=== PATIENT | female | born 2000 | race African-American/Black ===

== ENCOUNTER 2018-01-13 23:12 | Emergency (ER) | payer OTHER | END 2018-01-14 00:32 | disposition home or self-care (01) | LOC: ERS 23:12 | DX: O99.89 Other specified diseases and conditions complicating pregnancy, childbirth and the puerperium (principal); R06.4 Hyperventilation; Z3A.01 Less than 8 weeks gestation of pregnancy | CPT/HCPCS: 99283 ==

== ENCOUNTER 2018-06-10 08:57 | Day surgery (SDC) | payer OTHER ==
[2018-06-10 09:41] VITALS: BP 108/62; TEMP 98.9
[2018-06-10 09:42] VITALS: BMI 23.8
[2018-06-10] MEDS ORDERED: Ondansetron HCl/PF 4 MG in Sodium Chloride 0.9% 50 ML IVPB PRN (10:29)
[2018-06-10] MEDS ORDERED: Lactated Ringer's 1,000 ML IV SCH (10:30)
--- NOTE | 2018-06-10 12:48 | PDOC.LDHP ---
Labor and Delivery H&P Chief complaint: other (N/V) HPI: 18 y/o at 29w5d, patient of Dr. Rivera, presents with 2 days of N/V/ diarrhea and has been unable to keep anything down today. Denies VB, LOF, ctx, or decreased FM. ROS neg for HEENT, CV, pulm, GI, , neuro, psych, skin, musculoskeletal, or constitutional symptoms other than mentioned above. OB History Details: 1 prior LTCS, baby had trisomy 13 and shortly after . Past Medical History: None Current medications: none Previous surgical history: low tranverse CS Allergies/Adverse Reactions: Allergies Allergy/AdvReac Type Severity Reaction Status Date / Time No Known Allergies Allergy Verified 06/10/18 09:51 Social history: none - Physical Exam Vital signs reviewed and normal: yes General: NAD, resting Lungs: nonlabored breathing Abdomen: gravid Extremeties: no edema FHT: category 1 (140s, mod variability, + 10x10 accels, no decels) [place] contractions every: irritability at first, resolved - Assessment 18 y/o at 29w5d with gastroenteritis. Sx much improved after IV fluids and zofran. status reassuring. - Plan -: D/c home with precautions. Given Rx for zofran.
== END 2018-06-10 13:15 | disposition home health service (06) ==
LOC: BBPSJX 08:57 → L&D/OP 13:15
PROVIDERS: ATTEND Family Medicine
DX: O99.613 Diseases of the digestive system complicating pregnancy, third trimester (principal); K52.9 Noninfective gastroenteritis and colitis, unspecified; O21.2 Late vomiting of pregnancy; Z3A.29 29 weeks gestation of pregnancy
CPT/HCPCS: 96361; 96365; 99282; J2405; J7050

== ENCOUNTER 2018-07-05 17:24 | Day surgery (SDC) | payer OTHER ==
[2018-07-05 17:53] VITALS: BMI 24.3
[2018-07-05 17:54] VITALS: BP 106/64; TEMP 99.1
--- NOTE | 2018-07-05 18:22 | PDOC.LDHP ---
Labor and Delivery H&P Chief complaint: abdominal pain HPI: 18 yo at 33.2w by reported 1T isela presents with cc of lower abdominal pain that started this afternoon while she was walking. She states the pain was 10/10 just above her pubic bone and got worse when she sat down. It lasted 40 minutes but completely resolved by the time she got here. She denies dysuria/ hematuria/vaginal discharge. She is feeling baby move regularly. Denies vaginal bleeding or LOF. Denies contractions. ROS: 10 point ROS negative apart from what is documented above PMHx: None PSHx: Primary C/S for NRFHT FHx: DM/HTN in maternal GM ALL: NKDA Soc Hx: Denies t/a/d Medications: Not taking any medications Current gestational age (weeks): 33 (33.2) Due date: 08/21/17 Dating criteria: first trimester ultrasound Grav: 2 Para: 1 Current complications: none Abnormal US findings: No Current medications: none Previous surgical history: low tranverse CS Allergies/Adverse Reactions: Allergies Allergy/AdvReac Type Severity Reaction Status Date / Time No Known Allergies Allergy Verified 07/05/18 17:50 Social history: none - Physical Exam Vital signs reviewed and normal: yes General: resting Heart: RRR Lungs: CTAB Abdomen: NTTP Extremeties: no edema FHT: category 1 [place] contractions every: None - OB Labs Blood type: unknown RH: unknown Antibody Screen: unknown HIV: unknown RPR: unknown HEPSAg: unknown 1 hour GCT: unknown GBS: unknown - Assessment A/P: 18 yo at 33.2w with lower abdominal pain that has resolved 1. Abdominal pain, resolved - Denies any trauma - Likely contraction vs. round ligament pain - Denies any ongoing pain, declined IV fluids - Encourage PO hydration, Tylenol PRN pain, recommend restarting PNV 2. IUP - No signs of labor at this time - Return precautions discussed 3. Prior C/S - Plan for repeat at 39w scheduled 4. H/o with Trisomy 13 and demise - NIPT and ultrasounds this all WNL per patient Reactive NST, recommend f/u with Dr. Rivera this week.
== END 2018-07-05 18:29 | disposition home or self-care (01) ==
LOC: L&D/OP 17:24
PROVIDERS: ATTEND Family Medicine
DX: O99.89 Other specified diseases and conditions complicating pregnancy, childbirth and the puerperium (principal); R10.30 Lower abdominal pain, unspecified; Z3A.33 33 weeks gestation of pregnancy
CPT/HCPCS: 99283

== ENCOUNTER 2018-07-11 18:11 | Day surgery (SDC) | payer OTHER ==
[2018-07-11 18:48] VITALS: BP 109/69; TEMP 98.2; BMI 25.1
[2018-07-11] MEDS ORDERED: Lactated Ringer's 1,000 ML IV SCH (19:00)
--- NOTE | 2018-07-11 19:02 | PDOC.LDHP ---
Labor and Delivery H&P Chief complaint: decreased movement HPI: Here for decreased FM Patient of Dr Rivera Location: Triage Time: 1900 HPI: 18 yo prior CS x 1 for FTP (trisomy 13 child- demise) here at 34 weeks 1 day with decreased FM since this AM (1100). No LOF, no VB, no recent trauma. No fevers. Review of Systems: complete ROS done and as per HPI Current gestational age (weeks): 34 (1 day) Dating criteria: last menstrual period Grav: 2 Para: 1 OB History Details: HX prior child with trisomy 13; CS Current complications: none Abnormal US findings: No Current medications: pre- vitamins Previous surgical history: low tranverse CS Allergies/Adverse Reactions: Allergies Allergy/AdvReac Type Severity Reaction Status Date / Time No Known Allergies Allergy Verified 07/11/18 18:48 - Physical Exam Vital signs reviewed and normal: yes (109/69; 98.2; 95; 18) General: NAD Heart: RRR Lungs: CTAB Abdomen: gravid Extremeties: no edema FHT: category 1 [place] contractions every: none - Assessment Decreased FM at 34 weeks, CS x 1 - Plan Plan: observation in L&D (NST reactive; also will add BPP; 1 liter hydration for conservative care)
--- NOTE | 2018-07-11 19:48 | PDOC.EVN ---
Event Note - Event Note Event Note: BPP 02/05...04/09 with NST Ok for outpatient care
--- NOTE | 2018-07-11 21:13 | ULT ---
EXAM: ULTRASOUND BIOPHYSICAL PROFILE: 07/11/18 HISTORY: 34 weeks with decreased movement. Single viable intrauterine fetus. heart rate 137 beats per minute. Cephalic presentation. Poste rior placenta. Amniotic fluid index 18.0 cm. tone, breathing, and movements are evaluated as well as amniotic fluid. bioph ysical profile score is normal, 8/8. IMPRESSION: Normal biophysical profile score, 8/8. POS: [facility]
== END 2018-07-11 19:55 | disposition home health service (06) ==
LOC: L&D/OP 18:11
PROVIDERS: ATTEND Family Medicine
DX: O36.8130 Decreased fetal movements, third trimester, not applicable or unspecified (principal); Z3A.34 34 weeks gestation of pregnancy; Z79.899 Other long term (current) drug therapy
CPT/HCPCS: 59025; 76819; 96360; 99282

== ENCOUNTER 2018-07-29 14:16 | Day surgery (SDC) | payer OTHER ==
[2018-07-29 14:30] VITALS: BMI 25.3
[2018-07-29 15:40] VITALS: BP 124/71; TEMP 98.8
--- NOTE | 2018-07-29 18:49 | ULT ---
BIOPHYSICAL PROFILE: 07/29/18 HISTORY: Prior loss. FINDINGS: Single viable intrauterine fetus in vertex presentation. heart rate 137 beats per minute. Amnio tic fluid is within normal limits with an ALLISON of 18.2 cm. breathing was demonstrated during thi s study. tone and movements were normal and amniotic fluid is normal. IMPRESSION: biophysical profile score 6/8, breathing was not demonstrated. This finding was relayed to the patient's nurse at the time of the performance of the study by Nohemy Samaniego. Code T POS: [facility]
== END 2018-07-29 16:05 | disposition home or self-care (01) ==
LOC: L&D/OP 14:16
PROVIDERS: ATTEND Family Medicine
DX: O36.8190 Decreased fetal movements, unspecified trimester, not applicable or unspecified (principal); Z3A.36 36 weeks gestation of pregnancy
CPT/HCPCS: 59025; 76819; 99282

== ENCOUNTER 2018-08-13 07:48 | Inpatient (IN) | payer OTHER ==
[2018-08-13] MEDS ORDERED: Ondansetron PF 4 MG/2 ML Vial IVP PRN ×3 (08:25→13:23)
[2018-08-13] MEDS ORDERED: Promethazine HCl 25 MG/ML VIAL IM PRN ×2 (08:25→09:01)
[2018-08-13] MEDS ORDERED: CEFAZOLIN/Water 2 GM/20 ML SYRINGE SLOW IVP SCH (08:30)
[2018-08-13] MEDS ORDERED: Bicitra 30 ML UDCUP PO SCH (08:30)
[2018-08-13] MEDS ORDERED: Lactated Ringer's 1,000 ML IV SCH ×3 (08:30→13:23)
[2018-08-13 08:33] VITALS: BMI 25.3
[2018-08-13] MEDS ORDERED: CEFAZOLIN 2 GM/50 ML BAG ONE (08:44)
[2018-08-13] MEDS ORDERED: Dexamethasone 4 mg/ml Vial ONE (08:51)
[2018-08-13] MEDS ORDERED: Ondansetron PF 4 MG/2 ML Vial ONE ×2 (08:51→13:44)
[2018-08-13] MEDS ORDERED: Oxytocin 10 UNITS/ML VIAL ONE (08:51)
[2018-08-13] MEDS ORDERED: MORPHINE 5 MG/10 ML PF VIAL ONE (08:51)
[2018-08-13] MEDS ORDERED: Meperidine HCl/PF 25 MG/ML VIAL SLOW IVP PRN (09:01)
[2018-08-13] MEDS ORDERED: Naloxone HCl 0.4 mg/ml Vial IVP PRN ×2 (09:01)
[2018-08-13] MEDS ORDERED: Promethazine HCl 25 MG SUPP PR PRN (09:01)
[2018-08-13] MEDS ORDERED: Ondansetron HCl/PF 4 MG/2 ML Vial IVP PRN (09:01)
[2018-08-13] MEDS ORDERED: Eucerin (Mineral Oil/Petrolatum,White) 30 gm Jar TOP PRN (09:01)
[2018-08-13] MEDS ORDERED: L&D-Morphine 4 MG/ML VIAL SLOW IVP PRN (09:01)
[2018-08-13] MEDS ORDERED: diphenhydrAMINE 50 MG/ML VIAL IVP PRN (09:01)
[2018-08-13] MEDS ORDERED: Ketorolac Tromethamine 30 MG/ML VIAL IVP PRN (09:01)
[2018-08-13] MEDS ORDERED: HYDROmorphone 2 MG/ML VIAL SLOW IVP PRN (09:01)
[2018-08-13] MEDS ORDERED: Naloxone HCl 0.4 mg/ml Vial IV PRN (09:01)
[2018-08-13] MEDS ORDERED: Communication Order-Pharmacy FS SCH (09:15)
[2018-08-13] MEDS ORDERED: Ketorolac Tromethamine 30 MG/ML VIAL IVP SCH (09:15)
[2018-08-13 09:20] LABS: Hemoglobin 11.5 g/dL (12.0-16.0); Mean Corpuscular HGB CONC 32.1 g/dL (32.0-36.0); Mean Corpuscular Hemoglobin 30.6 pg (25.0-35.0); Mean Corpuscular Volume 95.4 fL (78.0-98.0); Mean Platelet Volume 7.4 fL (7.4-10.4); Platelet Count 223 thou/uL (130-400); RBC Distribution Width 12.4 % (11.5-14.5); Red Blood Cell (RBC) Count 3.75 mill/uL (4.00-5.20); White Blood Cell (WBC) Count 5.7 thou/uL (4.8-10.8)
[2018-08-13] MEDS ORDERED: CEFAZOLIN 2 GM/50 ML-DEXTROSE 2 GM in Premix Bag 1 BAG IVPB SCH (09:45)
[2018-08-13] MEDS ORDERED: ePHEDrine/0.9% NaCl/PF SYRINGE 50 mg/10 ml ONE (10:00)
[2018-08-13 10:04] LABS: HBSAg Index 0.18 S/CO (0-0.99); Hep B Surf Ag Non-Reactive S/CO (NonReactive); Syphilis Antibody Nonreactive (Nonreactive); Syphilis Antibody Index 0.06 S/CO (<1.00 Non-Reactive)
[2018-08-13] MEDS ORDERED: diphenhydrAMINE 50 MG/ML VIAL ONE (13:10)
[2018-08-13] MEDS ORDERED: Meperidine HCl/PF 25 MG/ML VIAL IM PRN (13:23)
[2018-08-13] MEDS ORDERED: NS / Oxytocin 40 units/1000ml 1,000 ML IV SCH (13:23)
[2018-08-13] MEDS ORDERED: Bisacodyl 10 MG SUPP PR PRN (13:23)
[2018-08-13] MEDS ORDERED: Simethicone Chewable 80 MG TAB PO PRN (13:23)
[2018-08-13] MEDS ORDERED: ePHEDrine 50 MG/ML VIAL ONE (13:44)
[2018-08-13] MEDS: Ibuprofen 800 MG TAB PO SCH ×2 (16:14→21:20)
[2018-08-13] MEDS: diphenhydrAMINE 25 MG CAP PO PRN ×2 (17:51→21:20)
[2018-08-13] MEDS: Docusate Calcium (SURFAK) 240 MG CAP PO SCH (21:20)
[2018-08-13] MEDS: Ferrous Sulfate 325 MG TAB PO SCH (21:28)
[2018-08-14] MEDS: Ibuprofen 800 MG TAB PO SCH ×3 (05:31→21:03)
[2018-08-14] MEDS: diphenhydrAMINE 25 MG CAP PO PRN ×4 (05:31→19:21)
[2018-08-14 09:09] LABS: Hemoglobin 10.5 g/dL (12.0-16.0); Mean Corpuscular Hemoglobin 30.5 pg (25.0-35.0); Mean Corpuscular Volume 95.2 fL (78.0-98.0); Mean Platelet Volume 7.2 fL (7.4-10.4); Platelet Count 249 thou/uL (130-400); RBC Distribution Width 12.1 % (11.5-14.5); Red Blood Cell (RBC) Count 3.44 mill/uL (4.00-5.20); White Blood Cell (WBC) Count 7.7 thou/uL (4.8-10.8)
[2018-08-14] MEDS: Ferrous Sulfate 325 MG TAB PO SCH ×2 (09:30→19:29)
[2018-08-14] MEDS: Docusate Calcium (SURFAK) 240 MG CAP PO SCH ×2 (09:30→19:29)
[2018-08-14] MEDS: Prenatal Vitamin 1 TAB PO SCH (09:30)
[2018-08-14] MEDS: HYDROcodone/Acetaminophen 5/325 mg Tablet PO PRN ×3 (12:29→19:29)
[2018-08-15] MEDS: Ibuprofen 800 MG TAB PO SCH ×2 (05:00→13:51)
[2018-08-15] MEDS: HYDROcodone/Acetaminophen 5/325 mg Tablet PO PRN ×2 (05:00→10:09)
[2018-08-15] MEDS: Ferrous Sulfate 325 MG TAB PO SCH (07:32)
[2018-08-15] MEDS: Prenatal Vitamin 1 TAB PO SCH (07:32)
[2018-08-15] MEDS: Docusate Calcium (SURFAK) 240 MG CAP PO SCH (07:32)
[2018-08-15 11:30] VITALS: BP 109/62; TEMP 98.3
--- NOTE | 2018-08-18 14:31 | OP ---
DATE OF PROCEDURE: 08/13/2018 RESIDENT SURGEON: Moraima Triana DO. PROCEDURE PERFORMED: Repeat low transverse section. PREOPERATIVE DIAGNOSES: 1. Term intrauterine . 2. Onset of labor. 3. Prior section x1. 4. Prior trisomy 13 with last . POSTOPERATIVE DIAGNOSES: 1. Term intrauterine , delivered. 2. Status post repeat low transverse delivery. 3. Onset of labor. 4. Prior section x1. 5. Prior trisomy 13 with last . ANESTHESIA: Spinal. INDICATIONS: This is a 18-year-old female, G2, P1,0,0,0 at 38 and 6 weeks gestation, who presented with onset of labor and has history of a x1. DESCRIPTION OF PROCEDURE: After risks, benefits, and alternatives were explained to the patient, she gave informed consent. Preoperative antibiotics included cefazolin 2 g IV as well as azithromycin 500 mg IV. The patient was taken to the operating room, and spinal anesthesia was initiated. She was placed in the supine position with left tilt and prepped and draped in usual sterile fashion. A Pfannenstiel incision was made with a scalpel and carried down to the level of the fascia, which was sharply nicked. The fascial cut was extended bilaterally with Beal scissors. The inferior and superior edges of the cut fascial edges were elevated with Luis Antonio clamps, and the underlying rectus muscles were sharply and bluntly dissected free. The recti were divided digitally and retracted manually. The peritoneum was entered bluntly and retracted manually. Bladder blade was placed. A low transverse score was made with a scalpel, and the uterus was entered in the midline with the scalpel. Clear fluid was seen. Hysterotomy was extended manually. The was noted to be vertex and was easily delivered by fundal pressure. Mouth and nares were bulb suctioned. Cord was clamped and cut, and grossly normal female was handed to awaiting nurse. Cord blood was also obtained. The placenta was manually extracted and found to be intact with three-vessel cord and discarded. The uterus was externalized, and the endometrium was curetted with a dry lap. The bladder blade was replaced, and the uterus was closed with a running locking 0 Vicryl suture x2. Following this, hemostasis was noted. The abdomen was irrigated with saline and suctioned free of clots. The uterus was internalized, and the hysterotomy was again noted to be hemostatic. Carsonfilm was placed on uterus. The peritoneum was closed using 3-0 Vicryl. The uterus was internalized and the hysterotomy was again noted to be hemostatic. The fascia was closed with running nonlocking 0 PDS suture. The subcutaneous tissue was irrigated, and bleeders were cauterized. The subcutaneous tissue was brought together using 3-0 Vicryl. The skin was approximated with don and pressure dressing was placed. All counts were correct. The patient tolerated the procedure well and was taken to the recovery room in stable condition. ESTIMATED BLOOD LOSS: 600 mL. COMPLICATIONS: None. SPECIMENS: Cord blood sent to lab for blood type. FINDINGS: Grossly normal female with Apgars of 8 and 9 at one and five minutes respectively. Grossly normal placenta with three vessel cord discarded. DRAINS: Gonzales to gravity, draining clear urine. Job ID: [id number] MTDD
== END 2018-08-15 17:10 | disposition home or self-care (01) | DRG 788 ==
LOC: L&D/OP 07:48 → L&D 09:09 → 3SE 13:56
PROVIDERS: ADMIT Family Medicine; ATTEND Family Medicine
PROC: 10D00Z1 Extraction of Products of Conception, Low, Open Approach (ICD-10-PCS; principal; 2018-08-13)
DX: O34.211 Maternal care for low transverse scar from previous cesarean delivery (principal); Z3A.38 38 weeks gestation of pregnancy; Z37.0 Single live birth
CPT/HCPCS: 36415; 51702; 85027; 86780; 86850; 86900; 86901; 87340; 99285; J1100; J1200; J2270; J2405; J2590; J3490; Q0163

== ENCOUNTER 2019-05-05 13:31 | Outpatient (CLI) | payer MEDICAID, OTHER ==
--- NOTE | 2019-05-05 14:29 | ULT ---
EXAM: OB ultrasound COMPARISON: None HISTORY: female. Evaluate size, dates, and anatomy. TECHNIQUE: Multiplanar grayscale and color Doppler transabdominal sonographic images are obtained. FINDINGS: There is a single intrauterine gestation in cephalic presentation. Cardiac Doppler demonstr ates heart tones with a heart rate of 153 beats per minute. The placenta is located anterior without evidence of placenta previa. There is a normal amount of amniotic fluid with an amni otic fluid index of 9.7 centimeters. The cervical length based on transabdominal imaging measures 3.3 centimeters. biometry measurements: BPD 3.53 cm -- 17 weeks HC 13.32 cm -- 17 weeks AC 11.72 cm -- 17 weeks 4 days FL 2.19 cm -- 16 weeks 4 days The estimated gestational age by ultrasound is 17 weeks 1 day with an MARTITA on10/12/2019. Gestational ag e by the last menstrual period is 17 weeks 2 days. The estimated weight by ultrasound is 177 g (6 ounces). This represents 27 percentile for weight. The cord insertion is not well delineated primarily related to positioning. A 4 chambered heart is visualized. The cerebellum, visualized portions of the spine, kidneys, and urinary bladder demonstrate a normal sonographic appearance. A three-vessel cord is not visualized, but there is flow on either side of the urinary bladder sugges ting a three-vessel cord.. No anomalies are seen. IMPRESSION: 1. Single intrauterine gestation in cephalic presentation with heart tones documented. Estimat ed gestational age by ultrasound is 17 weeks 1 day. 2. Estimated weight is 177 g (6 ounces). 3. Amniotic fluid index is 9.69 centimeters.
== END 2019-05-05 13:32 | disposition home or self-care (01) ==
LOC: BICULT 13:31
PROVIDERS: ATTEND Family Medicine
DX: O09.92 Supervision of high risk pregnancy, unspecified, second trimester (principal); Z3A.17 17 weeks gestation of pregnancy
CPT/HCPCS: 76805

== ENCOUNTER 2019-07-29 16:18 | Day surgery (SDC) | payer OTHER ==
[2019-07-29 16:43] LABS: Pregnancy Test - Urine (BHCG) POSITIVE (Negative); Pregu Control Background? CLEAR/WHITE (CLR/WHITE); Pregu Control Bar Appear? YES (CONTROL BAR); Specific Gravity 1.033 (1.002-1.036)
[2019-07-29 16:49] LABS: Bacteria/HPF 3+ HPF (None Seen); Bilirubin Negative (Negative); Blood, Urine Negative (Negative); Clarity Turbid (Clear); Glucose, Urine (Dipstick) Normal (Negative); Leukocyte Negative Leu/uL (Negative); Mucous/LPF Rare LPF (<2+); Nitrite Negative (Negative); Protein, Urine (Dipstick) 70 mg/dL (Neg-Trace); RBC/HPF 0-3 HPF (0-3); Urobilinogen Normal mg/dL (Less than 2)
[2019-07-29 17:20] VITALS: BP 114/58; TEMP 98; BMI 23.2
[2019-07-29] MEDS ORDERED: hydrALAZINE 20 MG/ML VIAL SLOW IVP PRN (17:40)
[2019-07-29 18:19] LABS: #Basophils 0.1 thou/uL (0.0-0.2); #Eosinphils 0.1 thou/uL (0.0-0.7); #Lymphocytes 1.8 thou/uL (1.20-3.40); #Monocytes 0.5 thou/uL (0.11-0.59); #Neutrophils 6.7 thou/uL (1.40-6.50); %Basophils 1.1 % (0.0-1.0); %Eosinophils 0.8 % (0.0-10.0); %Lymphocytes 19.7 % (21.0-51.0); %Monocytes 5.3 % (0.0-10.0); %Neutrophils 73.1 % (42.0-75.0); Hemoglobin 12.1 g/dL (12.0-16.0); Mean Corpuscular HGB CONC 33.3 g/dL (32.0-36.0); Mean Corpuscular Hemoglobin 32.3 pg (27.0-31.0); Mean Corpuscular Volume 97.2 fL (78.0-98.0); Mean Platelet Volume 7.7 fL (7.4-10.4); Platelet Count 208 thou/uL (130-400); RBC Distribution Width 12.1 % (11.5-14.5); Red Blood Cell (RBC) Count 3.73 mill/uL (4.20-5.40); White Blood Cell (WBC) Count 9.1 thou/uL (4.8-10.8)
[2019-07-29] MEDS ORDERED: Ondansetron PF 4 MG/2 ML Vial IVP PRN (18:33)
[2019-07-29 18:36] LABS: ALT (SGPT) Less than 7 U/L (8-55); AST (SGOT) 11 U/L (5-34); Albumin 3.2 g/dL (3.5-5.0); Alkaline Phosphatase 49 U/L (40-110); Anion Gap 11 mmol/L (10-20); BUN (Urea Nitrogen) Less than 4 mg/dL (7.0-18.7); Bilirubin, Total 0.4 mg/dL (0.2-1.2); Calc. Creatinine Clearance 115 mL/min (70-130); Calcium 7.9 mg/dL (7.8-10.44); Carbon Dioxide 23 mmol/L (22-29); Chloride 105 mmol/L (98-107); Estimated GFR-MDRD Greater than 90; Globulin 3.2 g/dL (2.4-3.5); Glucose 77 mg/dL (70-105); Potassium 3.5 mmol/L (3.5-5.1); Protein, Total 6.4 g/dL (6.0-8.3); Sodium 135 mmol/L (136-145)
[2019-07-29] MEDS ORDERED: Lactated Ringer's 1,000 ML IV SCH ×2 (18:45)
[2019-07-29 19:45] LABS: Bacteria/HPF None Seen HPF (None Seen); Bilirubin Negative (Negative); Blood, Urine Negative (Negative); Clarity Clear (Clear); Glucose, Urine (Dipstick) Normal (Negative); Leukocyte Negative Leu/uL (Negative); Nitrite Negative (Negative); Protein, Urine (Dipstick) Negative (Neg-Trace); RBC/HPF 0-3 HPF (0-3); Squamous Epithelial 0-3 HPF (0-3); Urobilinogen Normal mg/dL (Less than 2); WBC/HPF 0-3 HPF (0-3)
--- NOTE | 2019-07-29 21:23 | SS ---
DATE OF ADMISSION: 07/29/2019 DATE OF DISCHARGE: 07/29/2019 REGULAR PHYSICIAN: Ej Rivera MD EVALUATING PHYSICIAN: Anam Crum MD CHIEF COMPLAINT: Nausea, vomiting, diarrhea at home. HISTORY OF PRESENT ILLNESS: Ms. Bajwa is a 19-year-old black G3, P2 with an estimated date of confinement of 10/11/2019, who presents complaining of nausea, vomiting, and diarrhea since 3:00 a.m. She denies ill contacts at home. She denies ruptured membranes, vaginal bleeding, or contractions. Her care has been with Dr. Rivera without complications. PAST OBSTETRICAL HISTORY: Includes two sections. PAST MEDICAL HISTORY: None. PAST SURGICAL HISTORY: C-sections x2 as above. CURRENT MEDICATIONS: vitamins. ALLERGIES: NO KNOWN ALLERGIES. SOCIAL HISTORY: Denies tobacco, alcohol, or drug use. FAMILY HISTORY: Unremarkable. REVIEW OF SYSTEMS: Denies fever, chills, ruptured membranes, vaginal bleeding, decreased movement. PHYSICAL EXAMINATION: VITAL SIGNS: Blood pressure is 114/58, pulse 68, and temperature 98.0 on evaluation. GENERAL: She is pleasant and in no acute distress. heart rate tracing is stable. There are no decelerations. No significant uterine activity seen. LABORATORY DATA: White count 9.1, hemoglobin and hematocrit 12.1 and 36.2. Platelet count 208,000. Chemistries; sodium 135, potassium 3.5, BUN less than 4, creatinine 0.68, glucose 77, total bilirubin 0.4, AST 11, ALT less than 7, alkaline phosphatase 49. Urinalysis is repeated and it shows ketones, but is negative for leukocyte esterase or nitrites. On microscopic, no bacteria are seen. The patient is hydrated with a liter of IV fluid. At the end of her time in Labor and Delivery, she was tolerating Gatorade and was eating part of a sandwich. ASSESSMENT: 1. 29 and 3 week intrauterine . 2. Suspect viral syndrome. PLAN: The patient will be dismissed to home. She was given a prescription for Phenergan 25 mg p.o. #30 one p.o. q.6 hours p.r.n. nausea. She can use [id number] diarrheal for any continued diarrhea that she experiences. She was given complete precautions and states that she has follow up with Dr. Rivera next week in the office. Job ID: [id number]
== END 2019-07-29 20:17 | disposition home or self-care (01) ==
LOC: ERS 16:18 → EDSTATUS 16:56 → L&D/OP 16:57
DX: O21.2 Late vomiting of pregnancy (principal); O99.89 Other specified diseases and conditions complicating pregnancy, childbirth and the puerperium; R19.7 Diarrhea, unspecified; Z3A.29 29 weeks gestation of pregnancy
CPT/HCPCS: 36415; 51701; 80053; 81003; 81015; 81025; 85025; 96360; 96375; 99283; J2405

== ENCOUNTER 2019-09-26 04:49 | Day surgery (SDC) | payer OTHER ==
[2019-09-26 05:20] VITALS: BP 118/68; TEMP 98; BMI 25.0
[2019-09-26 06:27] LABS: Bilirubin Negative (Negative); Blood, Urine Negative (Negative); Clarity Turbid (Clear); Glucose, Urine (Dipstick) Normal (Negative); Leukocyte Negative Leu/uL (Negative); Nitrite Negative (Negative); Protein, Urine (Dipstick) 10 mg/dL (Neg-Trace); RBC/HPF 0-3 HPF (0-3); Squamous Epithelial 0-3 HPF (0-3); Urobilinogen Normal mg/dL (Less than 2)
[2019-09-26 06:29] LABS: Bacteria/HPF 1+ HPF (None Seen)
[2019-09-26] MEDS ORDERED: hydrALAZINE 20 MG/ML VIAL SLOW IVP PRN (06:58)
--- NOTE | 2019-09-26 07:29 | PRG ---
DATE OF SERVICE: 09/26/2019 PRIMARY PAPER CUTTER OPERATOR: Ej Rivera MD CHIEF COMPLAINT: Back pain, pelvic pressure. HISTORY OF PRESENT ILLNESS: The patient is a 19-year-old G3, P1 female with an intrauterine at 37 weeks and 6 days, presenting to Labor and Delivery with right lower back pain, that she reports it is worse with trying to sit up and pelvic pressure and pain. She denies any vaginal bleeding or leakage of fluid. She reports these pains have been present for about a day or so. She denies fever, cough, chest pain, shortness of breath, nausea, vomiting, diarrhea, constipation , hip problems, knee problems, muscle weakness. She denies any new rashes. PAST MEDICAL HISTORY: Negative. PAST SURGICAL HISTORY: She has had 1 previous . ALLERGIES: NO KNOWN DRUG ALLERGIES. MEDICATIONS: vitamins. SOCIAL HISTORY: Denies drug, alcohol, or tobacco use. OBSTETRICAL LABS: Unavailable at time of dictation. REVIEW OF SYSTEMS: Per HPI. PHYSICAL EXAMINATION: VITAL SIGNS: Blood pressure of 118/68, pulse of 82, respiratory rate of 18 saturating 99% on room air, temperature of 98.0. GENERAL: She appears to be in no acute distress. She is alert, oriented, cooperative, and pleasant to interact with. HEAD: Normocephalic and atraumatic. LUNGS: Clear to auscultation bilaterally. HEART: Has a regular rate and rhythm. ABDOMEN: Gravid. She has some tenderness down in the lower pelvic area. She also has some point tenderness in her right paravertebral area in her lumbar region. No CVA tenderness. EXTREMITIES: Nontender and nonedematous. : Cervical exam per nursing staff, she is closed, thick, and high. heart tracing shows the fetus with a baseline in the 130s with moderate long-term variability. Positive accelerations. Contractions show some irritability. No regular contraction pattern. LABORATORY DATA: Urinalysis shows a turbid urine with 4 to 6 white blood cells and 1+ bacteria, 0 squamous cells, negative leukocyte esterase, negative nitrites. VPIII is still pending. ASSESSMENT AND PLAN: The patient is a 19-year-old female with an intrauterine at 37 weeks and 6 days with musculoskeletal pains of , also with evidence of urinary tract infection. We are waiting on a VPIII prior to discharging the patient home. The patient has no evidence of labor at this time. She has an appointment on with her primary OB, Dr. Rivera, which we have encouraged that she keep. Once the VPIII is resulted, we will finish disposition. Job ID: [id number] MTDD
== END 2019-09-26 07:50 | disposition home or self-care (01) ==
LOC: L&D/OP 04:49
PROVIDERS: ATTEND Family Medicine
DX: O26.893 Other specified pregnancy related conditions, third trimester (principal); M54.5 Low back pain; R10.2 Pelvic and perineal pain; Z3A.37 37 weeks gestation of pregnancy
CPT/HCPCS: 81001; 87480; 87510; 87660; 99284

== ENCOUNTER 2019-10-06 05:29 | Inpatient (IN) | payer MEDICAID, OTHER ==
[2019-10-06 05:55] VITALS: BMI 25.4
[2019-10-06] MEDS ORDERED: Ondansetron PF 4 MG/2 ML Vial IVP PRN ×4 (05:55→10:48)
[2019-10-06] MEDS ORDERED: Lactated Ringer's 1,000 ML IV SCH (05:55)
[2019-10-06] MEDS ORDERED: hydrALAZINE 20 MG/ML VIAL SLOW IVP PRN ×3 (05:55→10:47)
[2019-10-06] MEDS ORDERED: CEFAZOLIN 2 GM in Premix Bag 1 BAG IVPB SCH (05:55)
[2019-10-06] MEDS ORDERED: Promethazine HCl 25 MG/ML VIAL IM PRN ×4 (05:55→10:49)
[2019-10-06] MEDS ORDERED: Bicitra 30 ML UDCUP PO SCH (06:00)
[2019-10-06 06:10] LABS: Hemoglobin 11.9 g/dL (12.0-16.0); Mean Corpuscular HGB CONC 33.7 g/dL (32.0-36.0); Mean Corpuscular Hemoglobin 31.5 pg (27.0-31.0); Mean Corpuscular Volume 93.4 fL (78.0-98.0); Mean Platelet Volume 7.4 fL (7.4-10.4); Platelet Count 235 thou/uL (130-400); RBC Distribution Width 12.1 % (11.5-14.5); Red Blood Cell (RBC) Count 3.77 mill/uL (4.20-5.40); White Blood Cell (WBC) Count 8.5 thou/uL (4.8-10.8)
[2019-10-06] MEDS ORDERED: MORPHINE 5 MG/10 ML PF VIAL ONE (07:18)
[2019-10-06] MEDS ORDERED: PHENYLEPHRINE-NS 100 MCG/ML 10 ML SYRINGE ONE (07:19)
[2019-10-06] MEDS ORDERED: Oxytocin 10 UNITS/ML VIAL ONE (07:19)
[2019-10-06 07:26] LABS: HBSAg Index 0.23 S/CO (0-0.99); Hep B Surf Ag Non-Reactive S/CO (NonReactive); Syphilis Antibody Nonreactive (Nonreactive); Syphilis Antibody Index 0.03 S/CO (<1.00 Non-Reactive)
[2019-10-06] MEDS ORDERED: Ondansetron HCl/PF 4 MG/2 ML Vial IVP PRN (08:37)
[2019-10-06] MEDS ORDERED: Naloxone HCl 0.4 mg/ml Vial IV PRN (08:37)
[2019-10-06] MEDS ORDERED: Promethazine HCl 25 MG SUPP PR PRN (08:37)
[2019-10-06] MEDS ORDERED: Ketorolac Tromethamine 30 MG/ML VIAL IVP PRN (08:37)
[2019-10-06] MEDS ORDERED: Meperidine HCl/PF 25 MG/ML VIAL SLOW IVP PRN (08:37)
[2019-10-06] MEDS ORDERED: HYDROmorphone 2 MG/ML VIAL SLOW IVP PRN (08:37)
[2019-10-06] MEDS ORDERED: L&D-Morphine 4 MG/ML VIAL SLOW IVP PRN (08:37)
[2019-10-06] MEDS ORDERED: diphenhydrAMINE 50 MG/ML VIAL IVP PRN (08:37)
[2019-10-06] MEDS ORDERED: Naloxone HCl 0.4 mg/ml Vial IVP PRN ×2 (08:37)
[2019-10-06] MEDS ORDERED: Communication Order-Pharmacy FS SCH (08:45)
[2019-10-06] MEDS ORDERED: Ketorolac Tromethamine 30 MG/ML VIAL IVP SCH (08:45)
[2019-10-06] MEDS ORDERED: diphenhydrAMINE 50 MG/ML VIAL ONE (09:38)
[2019-10-06] MEDS ORDERED: Prenatal Vitamin 1 TAB PO SCH (10:24)
[2019-10-06] MEDS ORDERED: Docusate Calcium (SURFAK) 240 MG CAP PO SCH (10:24)
[2019-10-06] MEDS ORDERED: HYDROcodone/Acetaminophen 5/325 mg Tablet PO PRN ×3 (10:24→10:47)
[2019-10-06] MEDS ORDERED: NS / Oxytocin 40 units/1000ml 1,000 ML IV SCH ×2 (10:24→11:00)
[2019-10-06] MEDS ORDERED: Lanolin Ointment 7 GM TUBE TOP PRN ×2 (10:24→10:48)
[2019-10-06] MEDS ORDERED: Ferrous Sulfate 325 MG TAB PO SCH (10:24)
[2019-10-06] MEDS ORDERED: Simethicone Chewable 80 MG TAB PO PRN ×2 (10:24→10:49)
[2019-10-06] MEDS ORDERED: Bisacodyl 10 MG SUPP PR PRN ×2 (10:24→10:45)
[2019-10-06] MEDS ORDERED: Meperidine HCl/PF 25 MG/ML VIAL IM PRN ×2 (10:24→10:48)
[2019-10-06] MEDS ORDERED: diphenhydrAMINE 25 MG CAP PO PRN (10:24)
--- NOTE | 2019-10-06 12:12 | OP ---
DATE OF PROCEDURE: 10/06/2019 RESIDENT SURGEON: Dr. Moraima Triana. ATTENDING SURGEON: Ej Rivera MD PROCEDURE PERFORMED: Repeat low transverse . PREOPERATIVE DIAGNOSES: 1. Term intrauterine at 39 and 2 weeks. 2. Previous x2. 3. History of trisomy 13 with 1st . POSTOPERATIVE DIAGNOSES: 1. Term intrauterine , delivered. 2. Previous x2. 3. History of trisomy 13 with 1st . ANESTHESIA: Spinal. INDICATIONS: This is a 19-year-old, at 39 and 2 weeks, who presents for repeat scheduled . DESCRIPTION OF PROCEDURE: After risks, benefits, and alternatives explained to the patient, she gave informed consent. Preoperative antibiotics included cefazolin 2 g IV. The patient was taken to the operating room and spinal anesthesia was initiated. She was placed in supine position with a left tilt and prepped and draped in usual sterile fashion. A Pfannenstiel incision was made with a scalpel and carried down to the level of the fascia, which was sharply nicked. There were noted to be moderate adhesions during this process. The fascial cut was extended bilaterally with Beal scissors. Inferior and superior edges of the cut fascial edges were elevated with Luis Antonio clamps and the underlying rectus muscles were sharply dissected free using Beal scissors. A small opening was noted in the midline of the recti muscle that was entered bluntly. The peritoneum was entered bluntly and both the recti muscles and peritoneum were retracted manually. Bladder blade was placed. A low transverse score was made with the scalpel and the uterus was entered in the midline with a scalpel. A clear fluid was seen. Hysterotomy was extended manually. Infant was noted to be vertex and was easily delivered by fundal pressure. Mouth and nares were bulb suctioned. Cord was clamped and cut, and grossly normal female was handed to awaiting nurse. Cord blood was obtained. Placenta manually extracted, found to be intact with three-vessel cord and discarded. Uterus was externalized and endometrium was curetted with a dry lap. The bladder blade was replaced. The uterus was closed in a running locking #1 Monocryl suture with several [id number] stitches for hemostasis. The abdomen was irrigated with saline and suctioned free of clots, both anterior and posterior to the uterus. There were not noted to be an extensive amount of uterine adhesions. The uterus was internalized and hysterotomy was again noted to be hemostatic. The peritoneum was closed with 3-0 Vicryl in a running nonlocking fashion. The recti muscles were examined and bleeders were cauterized. The fascia was then closed with a running nonlocking 0 PDS suture. The subcutaneous tissue was irrigated and bleeders were cauterized. The subcutaneous tissue was brought together using three interrupted sutures with 3-0 Vicryl. The skin was then approximated with don and pressure dressing was placed. All counts were correct. The patient tolerated the procedure well, was taken to the recovery room in stable condition. ESTIMATED BLOOD LOSS: 492 mL COMPLICATIONS: None. SPECIMEN: 492 mL FINDINGS: Grossly normal female infant with Apgars pending at time of dictation. Of note, the patient was requiring CPAP to maintain saturation. was taken to the NICU for care. Grossly normal placenta with 3-vessel cord discarded. DRAINS: Gonzales to gravity, draining clear urine. Job ID: [id number] [facility]
[2019-10-06] MEDS: Ibuprofen 800 MG TAB PO SCH (13:34)
[2019-10-06] MEDS: Ketorolac Tromethamine 30 MG/ML VIAL IVP SCH ×2 (13:52→19:55)
[2019-10-06] MEDS: diphenhydrAMINE 25 MG CAP PO PRN ×3 (13:55→22:17)
[2019-10-06] MEDS ORDERED: Sodium Chloride 0.9% 1,000 ML IV SCH (16:15)
[2019-10-06] MEDS: Sodium Chloride 0.9% 1,000 ML IV SCH (16:21)
[2019-10-06] MEDS: Docusate Calcium (SURFAK) 240 MG CAP PO SCH (19:56)
[2019-10-07] MEDS: Ketorolac Tromethamine 30 MG/ML VIAL IVP SCH (02:46)
[2019-10-07] MEDS: Sodium Chloride 0.9% 1,000 ML IV SCH ×3 (03:11→22:47)
[2019-10-07] MEDS: Ibuprofen 800 MG TAB PO SCH ×4 (03:11→21:54)
[2019-10-07] MEDS: Ferrous Sulfate 325 MG TAB PO SCH ×3 (03:11→22:46)
[2019-10-07] MEDS: diphenhydrAMINE 25 MG CAP PO PRN ×4 (03:23→19:47)
[2019-10-07 05:59] LABS: Hemoglobin 10.9 g/dL (12.0-16.0); Mean Corpuscular HGB CONC 32.6 g/dL (32.0-36.0); Mean Corpuscular Hemoglobin 30.8 pg (27.0-31.0); Mean Corpuscular Volume 94.5 fL (78.0-98.0); Mean Platelet Volume 7.1 fL (7.4-10.4); Platelet Count 195 thou/uL (130-400); RBC Distribution Width 11.9 % (11.5-14.5); Red Blood Cell (RBC) Count 3.52 mill/uL (4.20-5.40); White Blood Cell (WBC) Count 6.3 thou/uL (4.8-10.8)
[2019-10-07] MEDS ORDERED: Adacel (T-DAP) 0.5 ML SYRINGE IM ONE (09:00)
[2019-10-07] MEDS ORDERED: Ibuprofen 800 MG TAB PO SCH (10:00)
[2019-10-07] MEDS: Docusate Calcium (SURFAK) 240 MG CAP PO SCH ×2 (10:22→21:54)
[2019-10-07] MEDS: Prenatal Vitamin 1 TAB PO SCH (10:22)
[2019-10-07] MEDS: HYDROcodone/Acetaminophen 5/325 mg Tablet PO PRN ×2 (15:00→19:48)
[2019-10-08] MEDS: Sodium Chloride 0.9% 1,000 ML IV SCH ×3 (01:56→15:20)
[2019-10-08] MEDS: Ibuprofen 800 MG TAB PO SCH ×2 (05:05→13:44)
[2019-10-08 08:20] VITALS: BP 109/70; TEMP 98.3
[2019-10-08] MEDS: Ferrous Sulfate 325 MG TAB PO SCH (08:53)
[2019-10-08] MEDS: Prenatal Vitamin 1 TAB PO SCH (08:55)
[2019-10-08] MEDS: Docusate Calcium (SURFAK) 240 MG CAP PO SCH (08:55)
[2019-10-08] MEDS: HYDROcodone/Acetaminophen 5/325 mg Tablet PO PRN (08:55)
== END 2019-10-08 18:50 | disposition home or self-care (01) | DRG 788 ==
LOC: L&D 05:29 → 3SW 11:08
PROVIDERS: ADMIT Family Medicine; ATTEND Family Medicine
PROC: 10D00Z1 Extraction of Products of Conception, Low, Open Approach (ICD-10-PCS; principal; 2019-10-06)
DX: O34.211 Maternal care for low transverse scar from previous cesarean delivery (principal); O99.02 Anemia complicating childbirth; D64.9 Anemia, unspecified; O76 Abnormality in fetal heart rate and rhythm complicating labor and delivery; N85.8 Other specified noninflammatory disorders of uterus; Z3A.39 39 weeks gestation of pregnancy; Z37.0 Single live birth
CPT/HCPCS: 36415; 51702; 85027; 86780; 86850; 86900; 86901; 87340; J0690; J1200; J1885; J2274; J2590; Q0163

== ENCOUNTER 2020-04-21 08:48 | Emergency (ER) | payer OTHER ==
--- NOTE | 2020-04-21 09:33 | RAD ---
CHEST 1 VIEW: HISTORY: Cough. FINDINGS: Normal cardiac silhouette. The pulmonary vessels and hilum are normal. Costophrenic angles are mihai r. No consolidation or mass. No pneumothorax or acute osseous abnormality. IMPRESSION: No acute cardiopulmonary process. POS: [facility]
[2020-04-21 17:10] LABS: SARS-CoV-2 MS2 Positive; SARS-CoV-2 N Gene Negative; SARS-CoV-2 S Gene Negative; SARS-CoV-2 by NAA Not Detected (NotDetected); SARS-CoV-2 orf1ab Negative
== END 2020-04-21 10:05 | disposition home or self-care (01) ==
LOC: ERS 08:48
DX: R06.02 Shortness of breath (principal); R09.81 Nasal congestion; Z20.828 Contact with and (suspected) exposure to other viral communicable diseases
CPT/HCPCS: 71045; 87635; U0003

== ENCOUNTER 2021-05-15 11:07 | Emergency (ER) | payer OTHER ==
[2021-05-15 11:47] LABS: Bacteria/HPF 1+ HPF (None Seen); Bilirubin Negative (Negative); Blood, Urine 2+ (Negative); Clarity Turbid (Clear); Glucose, Urine (Dipstick) Normal (Negative); Ketone, Urine Negative (Negative); Leukocyte 250 Leu/uL (Negative); Nitrite Negative (Negative); Protein, Urine (Dipstick) 10 mg/dL (Neg-Trace); Specific Gravity, Urine 1.029 (1.002-1.036); Urobilinogen Normal mg/dL (Less than 2); pH, Urine 5.5 (5.0-9.0)
[2021-05-15 11:48] LABS: Pregnancy Test - Urine (BHCG) Negative (Negative); Pregu Control Background? CLEAR/WHITE (CLR/WHITE); Pregu Control Bar Appear? YES (CONTROL BAR); Specific Gravity 1.029 (1.002-1.036)
== END 2021-05-15 12:06 | disposition home or self-care (01) ==
LOC: ERS 11:07
DX: M54.50 Low back pain, unspecified (principal)
CPT/HCPCS: 81003; 81015; 81025; 87086; 99283

== ENCOUNTER 2021-06-07 13:11 | Emergency (ER) | payer OTHER | END 2021-06-07 15:54 | disposition left against medical advice (07) | LOC: ERS 13:11 | DX: Z53.21 Procedure and treatment not carried out due to patient leaving prior to being seen by health care provider (principal) ==

== ENCOUNTER 2021-06-10 18:27 | Emergency (ER) | payer OTHER ==
[2021-06-10 19:57] LABS: #Eosinphils 0.1 thou/uL (0.0-0.7); #Lymphocytes 2.7 thou/uL (1.20-3.40); #Monocytes 0.4 thou/uL (0.11-0.59); #Neutrophils 3.4 thou/uL (1.40-6.50); %Basophils 0.5 % (0.0-1.0); %Eosinophils 2.1 % (0.0-10.0); %Lymphocytes 40.4 % (21.0-51.0); %Monocytes 6.1 % (0.0-10.0); %Neutrophils 50.9 % (42.0-75.0); Hemoglobin 14.4 g/dL (12.0-16.0); Mean Corpuscular HGB CONC 33.2 g/dL (32.0-36.0); Mean Corpuscular Hemoglobin 32.8 pg (27.0-31.0); Mean Corpuscular Volume 98.8 fL (78.0-98.0); Mean Platelet Volume 8.3 fL (7.4-10.4); Platelet Count 235 thou/uL (130-400); RBC Distribution Width 11.6 % (11.5-14.5); Red Blood Cell (RBC) Count 4.38 mill/uL (4.20-5.40); White Blood Cell (WBC) Count 6.7 thou/uL (4.8-10.8)
[2021-06-10 20:00] LABS: BHCG - Serum Negative (NEGATIVE); Pregs Control Background? CLEAR/WHITE (CLR/WHITE); Pregs Control Bar Appear? YES (CONTROL BAR)
[2021-06-10 20:02] LABS: Bacteria/HPF 2+ HPF (None Seen); Bilirubin Negative (Negative); Blood, Urine 2+ (Negative); Clarity Clear (Clear); Glucose, Urine (Dipstick) Normal (Negative); Ketone, Urine Negative (Negative); Leukocyte Negative Leu/uL (Negative); Mucous/LPF Rare LPF (<2+); Nitrite 1+ (Negative); Protein, Urine (Dipstick) Negative (Neg-Trace); Specific Gravity, Urine 1.026 (1.002-1.036); Squamous Epithelial 0-3 HPF (0-3); Urobilinogen Normal mg/dL (Less than 2)
[2021-06-10 20:23] LABS: ALT (SGPT) 12 U/L (8-55); AST (SGOT) 13 U/L (5-34); Alkaline Phosphatase 41 U/L (40-110); Anion Gap 12 mmol/L (10-20); BUN (Urea Nitrogen) 11 mg/dL (7.0-18.7); Bilirubin, Total 0.2 mg/dL (0.2-1.2); Calc. Creatinine Clearance 0 mL/min (70-130); Calcium 9.3 mg/dL (7.8-10.44); Carbon Dioxide 23 mmol/L (22-29); Chloride 106 mmol/L (98-107); Globulin 3.7 g/dL (2.4-3.5); Glucose 87 mg/dL (70-105); Lipase 74 U/L (8-78); Potassium 4.1 mmol/L (3.5-5.1); Protein, Total 7.7 g/dL (6.0-8.3); Sodium 137 mmol/L (136-145)
== END 2021-06-10 21:03 | disposition home or self-care (01) ==
LOC: ERS 18:27
DX: N39.0 Urinary tract infection, site not specified (principal); R10.30 Lower abdominal pain, unspecified; F17.210 Nicotine dependence, cigarettes, uncomplicated
CPT/HCPCS: 36415; 80053; 81003; 81015; 83690; 84703; 85025; 87077; 87086; 87186; 99284

== ENCOUNTER 2021-07-15 01:38 | Emergency (ER) | payer OTHER | END 2021-07-15 02:31 | disposition left against medical advice (07) | LOC: ERS 01:38 | DX: Z53.21 Procedure and treatment not carried out due to patient leaving prior to being seen by health care provider (principal) ==

== ENCOUNTER 2021-07-15 08:55 | Emergency (ER) | payer OTHER ==
[2021-07-15] MEDS ORDERED: Ketorolac Tromethamine 30 MG/ML VIAL ONE (10:45)
[2021-07-15 11:03] LABS: #Basophils 0.1 thou/uL (0.0-0.2); #Eosinphils 0.1 thou/uL (0.0-0.7); #Lymphocytes 1.9 thou/uL (1.20-3.40); #Monocytes 0.8 thou/uL (0.11-0.59); #Neutrophils 6.1 thou/uL (1.40-6.50); %Basophils 0.8 % (0.0-1.0); %Eosinophils 0.9 % (0.0-10.0); %Lymphocytes 20.8 % (21.0-51.0); %Monocytes 9.4 % (0.0-10.0); %Neutrophils 68.1 % (42.0-75.0); Hemoglobin 12.8 g/dL (12.0-16.0); Mean Corpuscular Hemoglobin 32.3 pg (27.0-31.0); Mean Corpuscular Volume 97.9 fL (78.0-98.0); Mean Platelet Volume 8.1 fL (7.4-10.4); Platelet Count 223 thou/uL (130-400); Red Blood Cell (RBC) Count 3.97 mill/uL (4.20-5.40); White Blood Cell (WBC) Count 8.9 thou/uL (4.8-10.8)
[2021-07-15 11:19] LABS: BHCG - Serum Negative (NEGATIVE); Pregs Control Background? CLEAR/WHITE (CLR/WHITE); Pregs Control Bar Appear? YES (CONTROL BAR)
[2021-07-15 11:20] LABS: Bacteria/HPF 4+ HPF (None Seen); Bilirubin Negative (Negative); Blood, Urine 2+ (Negative); Clarity Turbid (Clear); Glucose, Urine (Dipstick) Normal (Negative); Ketone, Urine Negative (Negative); Leukocyte 250 Leu/uL (Negative); Nitrite 2+ (Negative); Protein, Urine (Dipstick) 20 mg/dL (Neg-Trace); Specific Gravity, Urine 1.019 (1.002-1.036); Urobilinogen 3 mg/dL (Less than 2); WBC/HPF Greater than 50 HPF (0-3); pH, Urine 6.5 (5.0-9.0)
[2021-07-15 11:25] LABS: ALT (SGPT) Less than 7 U/L (8-55); AST (SGOT) 11 U/L (5-34); Albumin 3.8 g/dL (3.5-5.0); Alkaline Phosphatase 42 U/L (40-110); Anion Gap 14 mmol/L (10-20); BUN (Urea Nitrogen) 6 mg/dL (7.0-18.7); Bilirubin, Total 0.4 mg/dL (0.2-1.2); Calc. Creatinine Clearance 0 mL/min (70-130); Calcium 8.8 mg/dL (7.8-10.44); Carbon Dioxide 24 mmol/L (22-29); Chloride 103 mmol/L (98-107); Globulin 3.7 g/dL (2.4-3.5); Glucose 88 mg/dL (70-105); Lipase 31 U/L (8-78); Potassium 3.9 mmol/L (3.5-5.1); Protein, Total 7.5 g/dL (6.0-8.3); Sodium 137 mmol/L (136-145)
[2021-07-15] MEDS ORDERED: Iopamidol-370 76% 500 ML 1 ML ONE (12:26)
[2021-07-15] MEDS ORDERED: Ondansetron PF 4 MG/2 ML Vial ONE (12:31)
[2021-07-15] MEDS ORDERED: cefTRIAXone\\ROCEPHIN 1 GM VIAL ONE (12:31)
[2021-07-15] MEDS ORDERED: Morphine 4 MG/ML VIAL ONE (12:31)
[2021-07-19 21:19] LABS: Chlamydia by PCR Not Detected (NotDetected); GC by PCR Not Detected (NotDetected)
== END 2021-07-15 13:37 | disposition home or self-care (01) ==
LOC: EEVIPCON 08:55 → ERS 08:55
DX: N39.0 Urinary tract infection, site not specified (principal)
CPT/HCPCS: 74177; 80053; 81003; 81015; 83690; 84703; 85025; 87480; 87491; 87510; 87591; 87660; 96374; 96375; J0696; J1885; J2270; J2405; Q9967

== ENCOUNTER 2021-11-03 21:46 | Emergency (ER) | payer OTHER | END 2021-11-04 00:16 | disposition home or self-care (01) | LOC: ERS 21:46 | DX: S83.92XA Sprain of unspecified site of left knee, initial encounter (principal); W09.8XXA Fall on or from other playground equipment, initial encounter; Y93.44 Activity, trampolining ==

== ENCOUNTER 2022-01-01 08:17 | Emergency (ER) | payer OTHER ==
[2022-01-01 08:53] LABS: #Basophils 0.1 thou/uL (0.0-0.2); #Eosinphils 0.1 thou/uL (0.0-0.7); #Lymphocytes 2.2 thou/uL (1.20-3.40); #Monocytes 0.4 thou/uL (0.11-0.59); %Eosinophils 1.4 % (0.0-10.0); %Lymphocytes 46.3 % (21.0-51.0); %Monocytes 7.8 % (0.0-10.0); %Neutrophils 42.5 % (42.0-75.0); Hemoglobin 13.6 g/dL (12.0-16.0); Mean Corpuscular HGB CONC 32.9 g/dL (32.0-36.0); Mean Corpuscular Hemoglobin 32.6 pg (27.0-31.0); Mean Corpuscular Volume 99.1 fL (78.0-98.0); Mean Platelet Volume 8.5 fL (7.4-10.4); Platelet Count 205 thou/uL (130-400); RBC Distribution Width 11.7 % (11.5-14.5); Red Blood Cell (RBC) Count 4.16 mill/uL (4.20-5.40); White Blood Cell (WBC) Count 4.7 thou/uL (4.8-10.8)
[2022-01-01 09:12] LABS: ALT (SGPT) 13 U/L (8-55); AST (SGOT) 12 U/L (5-34); Albumin 3.9 g/dL (3.5-5.0); Alkaline Phosphatase 33 U/L (40-110); Anion Gap 10 mmol/L (10-20); BUN (Urea Nitrogen) 7 mg/dL (7.0-18.7); Bilirubin, Total 0.6 mg/dL (0.2-1.2); Calc. Creatinine Clearance 0 mL/min (70-130); Carbon Dioxide 26 mmol/L (22-29); Chloride 106 mmol/L (98-107); Estimated GFR 105; Globulin 3.1 g/dL (2.4-3.5); Glucose 103 mg/dL (70-105); Lipase 51 U/L (8-78); Potassium 3.4 mmol/L (3.5-5.1); Sodium 139 mmol/L (136-145)
[2022-01-01 09:18] LABS: Bilirubin Negative (Negative); Blood, Urine Trace (Negative); Glucose, Urine (Dipstick) Normal (Negative); Ketone, Urine Negative (Negative); Leukocyte 25 Leu/uL (Negative); Nitrite Negative (Negative); Protein, Urine (Dipstick) 10 mg/dL (Neg-Trace); Specific Gravity, Urine 1.026 (1.002-1.036); pH, Urine 7.5 (5.0-9.0)
[2022-01-01 09:20] LABS: Pregnancy Test - Urine (BHCG) Negative (Negative); Pregu Control Background? CLEAR/WHITE (CLR/WHITE); Pregu Control Bar Appear? YES (CONTROL BAR); Specific Gravity 1.026 (1.002-1.036)
[2022-01-01 09:31] LABS: Clarity Cloudy (Clear); RBC/HPF 0-3 HPF (0-3); Squamous Epithelial 0-3 HPF (0-3); WBC/HPF 0-3 HPF (0-3)
[2022-01-01 09:32] LABS: Bacteria/HPF 1+ HPF (None Seen)
[2022-01-01] MEDS ORDERED: Acetaminophen 500 MG TAB ONE (09:40)
== END 2022-01-01 08:20 | disposition left against medical advice (07) ==
LOC: ERS 08:17
DX: Z53.21 Procedure and treatment not carried out due to patient leaving prior to being seen by health care provider (principal)
CPT/HCPCS: 36415; 80053; 81003; 81015; 81025; 83690; 85025; U0003; U0005

== ENCOUNTER 2022-01-07 05:47 | Emergency (ER) | payer OTHER ==
[2022-01-07 06:12] LABS: Bacteria/HPF None Seen HPF (None Seen); Bilirubin Negative (Negative); Blood, Urine 1+ (Negative); Clarity Clear (Clear); Glucose, Urine (Dipstick) Normal (Negative); Ketone, Urine 10 mg/dL (Negative); Leukocyte 75 Leu/uL (Negative); Nitrite Negative (Negative); Protein, Urine (Dipstick) Negative (Neg-Trace); Urobilinogen Normal mg/dL (Less than 2); pH, Urine 5.5 (5.0-9.0)
[2022-01-07 07:07] LABS: Pregnancy Test - Urine (BHCG) Negative (Negative); Pregu Control Background? CLEAR/WHITE (CLR/WHITE); Pregu Control Bar Appear? YES (CONTROL BAR)
[2022-01-07 07:47] LABS: #Basophils 0.1 thou/uL (0.0-0.2); #Eosinphils 0.1 thou/uL (0.0-0.7); #Lymphocytes 2.6 thou/uL (1.20-3.40); #Monocytes 0.4 thou/uL (0.11-0.59); #Neutrophils 3.4 thou/uL (1.40-6.50); %Basophils 1.1 % (0.0-1.0); %Eosinophils 1.9 % (0.0-10.0); %Lymphocytes 38.9 % (21.0-51.0); %Monocytes 6.1 % (0.0-10.0); %Neutrophils 52.1 % (42.0-75.0); Hemoglobin 13.7 g/dL (12.0-16.0); Mean Corpuscular HGB CONC 32.9 g/dL (32.0-36.0); Mean Corpuscular Hemoglobin 32.9 pg (27.0-31.0); Mean Platelet Volume 8.4 fL (7.4-10.4); Platelet Count 222 thou/uL (130-400); Red Blood Cell (RBC) Count 4.16 mill/uL (4.20-5.40); White Blood Cell (WBC) Count 6.6 thou/uL (4.8-10.8)
[2022-01-07 08:05] LABS: ALT (SGPT) 14 U/L (8-55); AST (SGOT) 14 U/L (5-34); Albumin 3.8 g/dL (3.5-5.0); Alkaline Phosphatase 33 U/L (40-110); Anion Gap 12 mmol/L (10-20); BUN (Urea Nitrogen) 8 mg/dL (7.0-18.7); Bilirubin, Total 0.2 mg/dL (0.2-1.2); Calc. Creatinine Clearance 0 mL/min (70-130); Calcium 8.7 mg/dL (7.8-10.44); Carbon Dioxide 24 mmol/L (22-29); Chloride 105 mmol/L (98-107); Estimated GFR 113; Globulin 2.9 g/dL (2.4-3.5); Glucose 102 mg/dL (70-105); Lipase 48 U/L (8-78); Potassium 3.8 mmol/L (3.5-5.1); Protein, Total 6.7 g/dL (6.0-8.3); Sodium 137 mmol/L (136-145)
[2022-01-07] MEDS ORDERED: Dicyclomine 20 MG TAB ONE (08:26)
[2022-01-07] MEDS ORDERED: Ondansetron ODT 4 MG TAB ONE (08:26)
== END 2022-01-07 08:29 | disposition home or self-care (01) ==
LOC: ERS 05:47
DX: K52.9 Noninfective gastroenteritis and colitis, unspecified (principal)
CPT/HCPCS: 36415; 80053; 81003; 81015; 81025; 83690; 85025; 87086; 99283; Q0162

== ENCOUNTER 2022-05-22 22:22 | Emergency (ER) | payer OTHER ==
[2022-05-22] MEDS ORDERED: Ondansetron PF 4 MG/2 ML Vial ONE ×2 (23:03→23:06)
[2022-05-22 23:19] LABS: Bacteria/HPF None Seen HPF (None Seen); Bilirubin Negative (Negative); Blood, Urine 2+ (Negative); Clarity Turbid (Clear); Glucose, Urine (Dipstick) Normal (Negative); Ketone, Urine Negative (Negative); Leukocyte Negative Leu/uL (Negative); Nitrite Negative (Negative); Protein, Urine (Dipstick) 10 mg/dL (Neg-Trace); Specific Gravity, Urine 1.027 (1.002-1.036); WBC/HPF 0-3 HPF (0-3)
[2022-05-22 23:23] LABS: #Basophils 0.1 thou/uL (0.0-0.2); #Eosinphils 0.1 thou/uL (0.0-0.7); #Monocytes 0.6 thou/uL (0.11-0.59); #Neutrophils 4.8 thou/uL (1.40-6.50); %Basophils 0.8 % (0.0-1.0); %Eosinophils 1.7 % (0.0-10.0); %Lymphocytes 34.7 % (21.0-51.0); %Monocytes 7.1 % (0.0-10.0); %Neutrophils 55.7 % (42.0-75.0); Hemoglobin 14.5 g/dL (12.0-16.0); Mean Corpuscular HGB CONC 32.8 g/dL (32.0-36.0); Mean Corpuscular Hemoglobin 32.1 pg (27.0-31.0); Mean Corpuscular Volume 97.9 fl (78.0-98.0); Mean Platelet Volume 8.6 fL (7.4-10.4); Platelet Count 255 10x3/uL (130-400); RBC Distribution Width 11.8 % (11.5-14.5); White Blood Cell (WBC) Count 8.5 10x3/uL (4.8-10.8)
[2022-05-22 23:37] LABS: BHCG - Serum Negative (NEGATIVE); Pregs Control Background? CLEAR/WHITE (CLR/WHITE); Pregs Control Bar Appear? YES (CONTROL BAR)
[2022-05-22] MEDS ORDERED: Ketorolac Tromethamine 30 MG/ML VIAL ONE (23:39)
[2022-05-22 23:46] LABS: ALT (SGPT) 20 U/L (8-55); AST (SGOT) 15 U/L (5-34); Albumin 4.4 g/dL (3.5-5.0); Alkaline Phosphatase 42 U/L (40-110); Anion Gap 13 mmol/L (10-20); BUN (Urea Nitrogen) 10 mg/dL (7.0-18.7); Bilirubin, Total 0.3 mg/dL (0.2-1.2); Calc. Creatinine Clearance 0 mL/min (70-130); Calcium 9.3 mg/dL (7.8-10.44); Carbon Dioxide 24 mmol/L (22-29); Chloride 104 mmol/L (98-107); Estimated GFR 104; Globulin 3.7 g/dL (2.4-3.5); Glucose 94 mg/dL (70-105); Lipase 58 U/L (8-78); Potassium 3.7 mmol/L (3.5-5.1); Protein, Total 8.1 g/dL (6.0-8.3); Sodium 137 mmol/L (136-145)
[2022-05-22 23:56] LABS: Amphetamine Not Detected (NotDetected); Barbiturates Screen Not Detected (NotDetected); Benzodiazepine Screen Not Detected (NotDetected); Cocaine Metabolite Screen Not Detected (NotDetected); Methadone Not Detected (NotDetected); Methamphetamine Not Detected (NotDetected); Opiate Screen Not Detected (NotDetected); Oxycodone Screen Not Detected (NotDetected); Phencyclidine (PCP) Not Detected (NotDetected); THC/Cannabinoid Screen Detected (NotDetected); Tricyclic Screen Not Detected (NotDetected)
[2022-05-23] MEDS ORDERED: Haloperidol Lactate 5 MG/ML VIAL ONE (00:35)
[2022-05-23] MEDS ORDERED: diphenhydrAMINE 50 MG/ML VIAL ONE (00:35)
== END 2022-05-23 00:58 | disposition home or self-care (01) ==
LOC: ERS 22:22
DX: R11.2 Nausea with vomiting, unspecified (principal); F12.90 Cannabis use, unspecified, uncomplicated
CPT/HCPCS: 36415; 80053; 80306; 81003; 81015; 83690; 84703; 85025; 96374; 96375; J1200; J1630; J1885; J2405

== ENCOUNTER 2022-10-02 18:52 | Emergency (ER) | payer OTHER | END 2022-10-02 20:03 | disposition left against medical advice (07) | LOC: ERS 18:52 | DX: Z53.29 Procedure and treatment not carried out because of patient's decision for other reasons (principal) ==

== ENCOUNTER 2022-10-14 20:51 | Emergency (ER) | payer OTHER | END 2022-10-14 23:38 | disposition home or self-care (01) | LOC: ERS 20:51 | DX: S91.112A Laceration without foreign body of left great toe without damage to nail, initial encounter (principal); F17.210 Nicotine dependence, cigarettes, uncomplicated; W22.8XXA Striking against or struck by other objects, initial encounter | CPT/HCPCS: 99282 ==

== ENCOUNTER 2022-12-10 09:33 | Emergency (ER) | payer OTHER ==
[2022-12-10] MEDS ORDERED: Acetaminophen 500 MG TAB ONE (10:38)
[2022-12-10 11:09] LABS: Bacteria/HPF None Seen HPF (None Seen); Bilirubin Negative (Negative); Blood, Urine 2+ (Negative); CAUTI Indications for Culture Pelvic or flank pain; Clarity Clear (Clear); Glucose, Urine (Dipstick) Normal (Negative); Ketone, Urine Negative (Negative); Leukocyte Negative Leu/uL (Negative); Nitrite Negative (Negative); Protein, Urine (Dipstick) Negative (Neg-Trace); RBC/HPF 0-3 HPF (0-3); Specific Gravity, Urine 1.012 (1.002-1.036); WBC/HPF 0-3 HPF (0-3); pH, Urine 6.5 (5.0-9.0)
[2022-12-10 11:10] LABS: Pregnancy Test - Urine (BHCG) Negative (Negative); Pregu Control Background? CLEAR/WHITE (CLR/WHITE); Pregu Control Bar Appear? YES (CONTROL BAR); Specific Gravity 1.012 (1.002-1.036)
[2022-12-10 11:11] LABS: Urine Culture Reflex No No
== END 2022-12-10 12:40 | disposition left against medical advice (07) ==
LOC: ERS 09:33
DX: Z53.29 Procedure and treatment not carried out because of patient's decision for other reasons (principal)
CPT/HCPCS: 81001; 81025; 99283

== ENCOUNTER 2023-05-07 17:37 | Emergency (ER) | payer OTHER ==
[2023-05-07] MEDS ORDERED: Lidocaine 1% w/Epinephrine 1:100K 20 ML VIAL ONE (18:14)
[2023-05-07] MEDS ORDERED: Boostrix 0.5 ML (Tdap) VIAL (>/=7 yrs of age) ONE (18:15)
[2023-05-07] MEDS ORDERED: Lidocaine/Transparent Dressing 1 EACH KIT ONE (18:18)
[2023-05-07] MEDS ORDERED: Bacitracin 1 PK ONE (20:34)
== END 2023-05-07 20:46 | disposition home or self-care (01) ==
LOC: ERS 17:37
DX: S61.211A Laceration without foreign body of left index finger without damage to nail, initial encounter (principal); F17.210 Nicotine dependence, cigarettes, uncomplicated; W26.0XXA Contact with knife, initial encounter
CPT/HCPCS: 90471; 90715

== ENCOUNTER 2023-06-16 18:51 | Emergency (ER) | payer OTHER ==
[2023-06-16] MEDS ORDERED: Acetaminophen 500 MG TAB ONE (19:11)
[2023-06-16] MEDS ORDERED: Ibuprofen 200 MG TAB ONE (19:23)
[2023-06-16 20:24] LABS: SARS-CoV-2 NAA Rapid Test Not Detected (NotDetected)
== END 2023-06-16 20:45 | disposition home or self-care (01) ==
LOC: ERS 18:51
DX: J10.1 Influenza due to other identified influenza virus with other respiratory manifestations (principal); F17.210 Nicotine dependence, cigarettes, uncomplicated
CPT/HCPCS: 99283